=== PATIENT | male | born 1955 | race Caucasian/White ===

== ENCOUNTER 2018-07-07 06:56 | Day surgery (SDC) | payer BC, MEDICAID ==
[2018-07-07] MEDS ORDERED: fentaNYL 100 MCG/2 ML SDV ONE (07:38)
[2018-07-07] MEDS ORDERED: Propofol 200 MG/20 ML SDV ONE ×2 (07:38→08:27)
[2018-07-07] MEDS ORDERED: Midazolam 1 MG/ML 2 ML SDV ONE (07:38)
[2018-07-07] MEDS ORDERED: Dextrose 5%-Lactated Ringers 1,000 ML IV SCH (07:45)
--- NOTE | 2018-07-17 14:45 | OR ---
DATE OF PROCEDURE: 07/07/2018 PREOPERATIVE DIAGNOSIS: Indications for screening colonoscopy. POSTOPERATIVE DIAGNOSIS: Normal screening colonoscopy. OPERATIVE PROCEDURE: Flexible colonoscopy. ANESTHESIA: IV sedation. INDICATION FOR PROCEDURE: A 62-year-old presenting for a screening colonoscopy. Plan is to proceed with colonoscopy with biopsies and/or polypectomy as indicated. Potential risks including bleeding and perforation were discussed, and the patient wishes to proceed. DETAILS OF PROCEDURE: The patient was taken to the operating room and placed in a left lateral decubitus position. IV sedation was administered, after which the initial digital rectal exam was performed and was unremarkable. Colonoscope was then passed into the rectum with retroflexion revealing uncomplicated hemorrhoidal columns. The scope was then passed up to the level of the cecum. The prep was quite good with there only being a small amount of liquid stool present. To that level, no abnormalities noted. Specifically, no diverticula, no areas of colitis, and no polyps or other signs of neoplasia. The scope was then withdrawn. The above findings were reconfirmed and procedure was concluded. The patient was taken to the recovery room in satisfactory condition. Recommendation would be to repeat the colonoscopy in 10 years with the absence of personal or family history of colonic neoplasia. Mike Braxton MD /[id number]
== END 2018-07-07 09:41 | disposition home or self-care (01) ==
LOC: JP.SDS 06:56
PROVIDERS: ATTEND Surgery
DX: Z12.11 Encounter for screening for malignant neoplasm of colon (principal); K64.9 Unspecified hemorrhoids; E66.9 Obesity, unspecified; Z68.28 Body mass index [BMI] 28.0-28.9, adult
CPT/HCPCS: 45378; J2250; J2704; J3010; J7042